=== PATIENT | female | born 1985 | race Caucasian/White ===

== ENCOUNTER 2017-03-14 21:37 | Emergency (ER) | payer OTHER ==
[~2017-03-14] VITALS: Ht 160 cm; Wt 59.9 kg
[~2017-03-14 21:37] MED LIST: AMOXIL500 MG PO; AURODEX 54 MG/M10 ML OT
--- NOTE | 2017-03-14 22:11 | ED INFLUENZA/URI COMPLAINT ---
History of Present Illness General Chief Complaint: Upper Respiratory Sx/Fever Stated Complaint: UPPER RES PROBLEMS Source: patient, old records Exam Limitations: no limitations Vital Signs & Intake/Output Vital Signs & Intake/Output Vital Signs Date Time Temp Pulse Resp B/P B/P Pulse O2 O2 Flow FiO2 Mean Ox Delivery Rate 03/140 98.0 87 18 124/74 100 Room Air 03/14 2227 99 Room Air 03/14 2143 99.7 118 20 126/89 98 Room Air ED Intake and Output 03/15 0000 03/14 1200 Intake Total 50 Output Total Balance 50 Intake, Oral 50 Patient 132 lb Weight Weight Reported by Patient Measurement Method Allergies Coded Allergies: NO KNOWN ALLERGIES (03/14/17) Reconcile Medications Amoxicillin (Amoxil) 500 MG CAP 1 TAB PO TID EAR INFECTION Amoxicillin/Potassium Clav (Augmentin 875-125 Tablet) 875 MG-125 MG TABLET 1 TAB PO BID uri Antipyrine/Benzocaine (Aurodex Otic Solution) 10 ML CHERRIE 4 GTT OT Q4 PRN PAIN Codeine Phosphate/Guaifenesi (Guaifen-Codeine 100-10 MG/5 Ml) 10 MG-100 MG/5 ML LIQUID 10 ML PO Q6HR PRN COUGH Triage Note: PT C/O URI SYMPTOMS WITH BAD COUGH, OVERALL ILL FEELING UNIMPROVED BY MOTRIN THIS AFTERNOON. STATES SHE WAS EXPOSED TO BREATHING SOME CLOROX YESTERDAY, UNSURE IF RELATED. COUGH IS NON-PRODUCTIVE. ALSO ENDORSES FEVER, 99.7 IN TRIAGE. PRESSURE TO HEAD WITH COUGHING. -N/V/D. +SORE THROAT, PAIN WITH SWALLOWING. THROAT SWABS OBTAINED AND SENT. MEDICATED WITH TYLENOL IN TRIAGE. Triage Nurses Notes Reviewed? yes Onset: Abrupt Duration: day(s): (2), constant Timing: recent history Severity: mild, moderate Severity Numbers: 5 : No Patient currently breastfeeds: No HPI: 31-year-old female presents to the ER for evaluation complaining of a 2 day history of a nonproductive cough generalized bodyaches and subjective fevers at home since yesterday. She reports a chills while outside. She denies any chest pain shortness of breath abdominal pain nausea vomiting diarrhea. No sick contacts. The patient states that she was using Clorox prophylaxis for a walk cleaning and is not sure if that caused her symptoms today. She is an active smoker. No modifying factors or associated symptoms. (MELANIE ZAIDI) Past History Travel History Traveled to [place] past 21 day No Medical History Any Pertinent Medical History? none Neurological: NONE EENT: NONE Cardiovascular: NONE Respiratory: NONE Gastrointestinal: NONE Hepatic: NONE Renal: NONE Musculoskeletal: NONE Psychiatric: ADHD Endocrine: NONE Blood Disorders: NONE Cancer(s): NONE Surgical History Surgical History: non-contributory Psychosocial History What is your primary language Russian Tobacco Use: Current Not Daily Daily Tobacco Use Amount/Type: =< 4 Cigarettes daily ETOH Use: occasional use Illicit Drug Use: denies illicit drug use Family History Hx Contributory? No (MELANIE ZAIDI) Review of Systems Review of Systems Constitutional: Reports: see HPI. All Other Systems: Reviewed and Negative Comments Review of systems: See HPI, All other systems negative. Constitutional, no chills no fever, no malaise HEENT: No visual changes sore throat no congestion, no ear pain Cardiovascular: No chest pain , no palpitation Skin: no rashes, no change in skin Respiratory: No dyspnea cough no sputum GI: No nausea no vomiting, no diarrhea, : No dysuria Muscle skeletal: No joint pain, no joint swelling, no back pain, no neck pain, Neurologic: No numbness no headache Psych: No stress Heme/endocrine: No bruising Immunology: No lymphadenopathy (MELANIE ZAIDI) Physical Exam Physical Exam General Appearance: well developed/nourished, no apparent distress, alert, awake Ears, Nose, Throat: normal ENT inspection Comments: Well-developed well-nourished patient in no apparent distress. Head/Face: Atraumatic, no maxillary/frontal sinus tenderness, no facial swelling Eyes: PERRL, EOMI, no conjunctival injection. No nystagmus Ear:External auditory canal and Tympanic membranes clear, no erythema, no FB. Nose: atraumatic.Normal inspection: No bleeding, no septal hematoma Throat: Moist mucous membranes.Pharynx normal. No pharyngeal erythema/exudate seen. No stridor/drooling or assymetry. No swelling or edema. Neck: Supple, no lymphadenopathy, FROM Back: FROM Cardiovascular: Regular rate and rhythms no murmurs rubs Respiratory: Chest nontender.There were no bony deformities, no asymmetry. No respiratory distress. Patient speaking in full complete sentences. Breath sounds clear to auscultation bilaterally: NO W/R/R Extremities: full range of motion Neuro: awake, alert, and oriented to person, place and time. There were no obvious focal neurologic abnormalities. Skin: Warm & dry;No appreciable rash on exposed skin Psych: Mood affect normal, normal memory normal judgment. Core Measures Severe Sepsis Present: No Septic Shock Present: No (MELANIE ZAIDI) Progress Differential Diagnosis: influenza, otitis, pneumonia, pharyngitis, sinusitis Plan of Care: Orders Procedure Date/time Status THROAT CULTURE W/QUICK STREP 03/14 2146 Active I discussed with the patient at length all of their results. smoking cessation d /w pt at length I had an extensive conversation regarding need for close follow up with their primary care physician this week as well as return precautions. I answered all of their questions, they feel comfortable with the plan and follow- up care. I discussed with the patient/family the medications that they will receive. I gave them signs and symptoms that could indicate an adverse reaction. I have advised them to limit their activities until they can see how they respond to the medication. (MELANIE ZAIDI) Initial ED EKG: none (MELANIE ZAIDI) Departure Departure Time of Disposition: 2216 Disposition: HOME OR SELF CARE Condition: Stable Clinical Impression Primary Impression: URI (upper respiratory infection) Referrals: JL BABIN APRN (PCP/Family) Additional Instructions: Tylenol Motrin for fevers bodyaches as needed every 4-6 hours. Augmentin as directed, follow up with her primary care physician. robitussin with codeine- this has a narcotic in it.no driving or drinking alcohol while taking. Return to ER with any concerns. Departure Forms: Customer Survey General Discharge Information Prescriptions: Current Visit Scripts Amoxicillin/Potassium Clav (Augmentin 875-125 Tablet) 1 TAB PO BID #14 TAB Codeine Phosphate/Guaifenesi (Guaifen-Codeine 100-10 MG/5 Ml) 10 ML PO Q6HR PRN COUGH #150 ML (MELANIE ZAIDI) PA/ORNAMENTAL MACHINE OPERATOR Co-Sign Statement Statement: ED Attending supervision documentation- [] I saw and evaluated the patient. I have also reviewed all the pertinent lab results and diagnostic results. I agree with the findings and the plan of care as documented in the PA's/ORNAMENTAL MACHINE OPERATOR's documentation. [X] I have reviewed the ED Record and agree with the PA's/ORNAMENTAL MACHINE OPERATOR's documentation. [] Additions or exceptions (if any) to the PAs/ORNAMENTAL MACHINE OPERATOR's note and plan are summarized below: [] (RANCHO HOLGUNI,ALEX)
[2017-03-14] MEDS ORDERED: GUAIFEN-CODEIN118 M1 PO (22:18)
[2017-03-14] MEDS ORDERED: AUGMENTIN 875-1 EACH PO (22:18)
[2017-03-14 22:30] VITALS: BP 124/74
== END 2017-03-14 22:31 ==
LOC: ERH 21:37
DX: N39.0 Urinary tract infection, site not specified (principal)

== ENCOUNTER 2018-04-23 22:36 | Emergency (ER) | payer SELFPAY ==
[~2018-04-23 22:36] MED LIST changes: +AUGMENTIN 875-1 EACH PO; +GUAIFEN-CODEIN118 M1 PO
--- NOTE | 2018-04-23 23:24 | ED PSYCHIATRIC COMPLAINT ---
History of Present Illness General Chief Complaint: Psychiatric Related Complaint Stated Complaint: DEPRESSED, -SI Source: patient Exam Limitations: no limitations Vital Signs & Intake/Output Vital Signs & Intake/Output Vital Signs Date Time Temp Pulse Resp B/P B/P Pulse O2 O2 Flow FiO2 Mean Ox Delivery Rate 04/24 0850 97.7 72 20 105/69 94 04/23 2241 98.7 82 22 151/105 98 Room Air ED Intake and Output 04/24 0000 04/23 1200 Intake Total Output Total Balance Patient 130 lb Weight Weight Reported by Patient Measurement Method Allergies Coded Allergies: NO KNOWN ALLERGIES (03/14/17) Reconcile Medications Amoxicillin (Amoxil) 500 MG CAP 1 TAB PO TID EAR INFECTION Amoxicillin/Potassium Clav (Augmentin 875-125 Tablet) 875 MG-125 MG TABLET 1 TAB PO BID uri Antipyrine/Benzocaine (Aurodex Otic Solution) 10 ML CHERRIE 4 GTT OT Q4 PRN PAIN Codeine Phosphate/Guaifenesi (Guaifen-Codeine 100-10 MG/5 Ml) 10 MG-100 MG/5 ML LIQUID 10 ML PO Q6HR PRN COUGH Triage Note: PT TO ED WITH C/O INCREASING DEPRESSION AND STRESS. HAS BEEN PRESCRIBED EFFEXOR IN THE PAST FOR DEPRESSION BUT HAS NOT TAKEN IN SEVERAL MONTHS. DENIES SI. TEARFUL IN TRIAGE. Triage Nurses Notes Reviewed? yes Onset: Gradual Duration: week(s):, waxing and waning Timing: recent history Severity: moderate Associated Symptoms: anxiety : No Patient currently breastfeeds: No HPI: 32 YO woman with severe depression x many months, was previously on effexor and vyvanse but stopped several months ago due to losing insurance. She shares that she is unable to go out of her house. "I break down crying all the time... My moods are up and down... it's so bad...." She denies etoh, drug use. She denies SI/HI. She is otherwise well. (Saskia HOLGUIN,Asa Cervantes) Past History Travel History Traveled to [place] past 21 day No Medical History Any Pertinent Medical History? see below for history Neurological: NONE EENT: NONE Cardiovascular: NONE Respiratory: NONE Gastrointestinal: NONE Hepatic: NONE Renal: NONE Musculoskeletal: NONE Psychiatric: ADHD Endocrine: NONE Blood Disorders: NONE Cancer(s): NONE Surgical History Surgical History: non-contributory Psychosocial History What is your primary language Turkmen Tobacco Use: Current Daily Use Daily Tobacco Use Amount/Type: => 5 Cigarettes daily ETOH Use: occasional use Illicit Drug Use: denies illicit drug use Family History Hx Contributory? No (Saskia HOLGUIN,Asa Cervantes) Review of Systems Review of Systems Constitutional: Reports: no symptoms. EENTM: Reports: no symptoms. Respiratory: Reports: no symptoms. Cardiovascular: Reports: no symptoms. GI: Reports: no symptoms. Genitourinary: Reports: no symptoms. Musculoskeletal: Reports: no symptoms. Skin: Reports: no symptoms. Neurological/Psychological: Reports: no symptoms. Hematologic/Endocrine: Reports: no symptoms. Immunologic/Allergic: Reports: no symptoms. All Other Systems: Reviewed and Negative (Saskia HOLGUIN,Asa Cervantes) Physical Exam Physical Exam General Appearance: well developed/nourished, mild distress Head: atraumatic Eyes: Bilateral: normal appearance. Ears, Nose, Throat: normal ENT inspection Neck: normal inspection, supple Respiratory: no respiratory distress Neurological/Psychiatric: awake, agitated, anxious, ample tearfulness, very distraught Appearance/Memory/Insight: appropriate appearance, appropriate insight Behavoir/Eye Contact/Speech: cooperative Thoughts/Hallucinations: no apparent hallucination Skin: intact, normal color, warm/dry SAD PERSONS Done? patient not suicidal (Saskia HOLGUIN,Asa Cervantes) Progress Differential Diagnosis: depression, bipolar, agoraphobia Plan of Care: Orders Procedure Date/time Status Regular Diet 04/24 B Active Add-on Test (ER Only) 04/24 402 Active HUMAN BETA HCG SCREEN 04/24 100 Complete URINE DRUG SCREEN FOR ER ONLY 04/23 2333 Complete ETHANOL 04/23 2333 Complete COMPREHENSIVE METABOLIC PANEL 04/23 2333 Complete CBC WITHOUT DIFFERENTIAL 04/23 2333 Complete ED CRISIS PSYCH CONSULT 04/23 2333 Active Current Medications Sig/Sobeida Start time Last Medication Dose Stop Time Status Admin Lorazepam 1 MG TIDPRN PRN 04/23 2345 AC (Ativan) Laboratory Tests : Serum Alcohol < 10.0 : Anion Gap 7, Estimated GFR > 60, BUN/Creatinine Ratio 22.9, Glucose 91, Calcium 9.5, Total Bilirubin 0.2, AST 20, ALT 18, Alkaline Phosphatase 58, Total Protein 6.5, Albumin 3.8, Globulin 2.7, Albumin/Globulin Ratio 1.4, Total Beta HCG NEGATIVE, CBC w Diff NO MAN DIFF REQ, RBC 3.86 L, MCV 90.8, MCH 31.7 H, MCHC 35.0, RDW 12.4, MPV 8.2, Gran % 57.3, Lymphocytes % 33.5, Monocytes % 6.8, Eosinophils % 2.0, Basophils % 0.4, Absolute Granulocytes 5.7, Absolute Lymphocytes 3.3, Absolute Monocytes 0.7 H, Absolute Eosinophils 0.2, Absolute Basophils 0, Urine Opiates Screen < 100, Methadone Screen < 40, Barbiturate Screen < 60, Ur Phencyclidine Scrn < 6.00, Amphetamines Screen 950, U Benzodiazepines Scrn < 85, Urine Cocaine Screen < 50, Urine Cannabis Screen < 5.00 (Saskia HOLGUIN,Asa Cervantes) Departure Departure Condition: Stable Clinical Impression Primary Impression: Depression Referrals: Lisandro Murrell APRN (PCP/Family) Departure Forms: Customer Survey General Discharge Information Comments pt to be signed out to dr. mesa 04/24/18, 7am. (Saskia HOLGUIN,Asa Cervantes) Departure Disposition: HOME OR SELF CARE Comments Seen by Crisis with appropriate outpatient follow-up. (Wilian HOLGUIN,Christiano)
[2018-04-24 01:28] LABS: ABSOLUTE BASOPHIL COUNT 0 /CUMM (0.0-0.2); ABSOLUTE EOSINOPHIL COUNT 0.2 /CUMM (0.0-0.7); ABSOLUTE GRANULOCYTE CT 5.7 /CUMM (1.4-6.5); ABSOLUTE LYMPH COUNT 3.3 /CUMM (1.2-3.4); ABSOLUTE MONOCYTE COUNT 0.7 /CUMM (0.10-0.60); BASOPHIL % 0.4 % (0.0-2.0); GRANULOCYTE % 57.3 % (42.2-75.2); MEAN CORPUSCULAR HGB 31.7 PG (27.0-31.0); MEAN CORPUSCULAR VOLUME 90.8 FL (81.0-99.0); MEAN PLATELET VOLUME 8.2 FL (7.4-10.4); PLATELET COUNT 270 /CUMM (130-400); RBC DISTRIBUTION WIDTH 12.4 % (11.5-14.5); RED BLOOD CELL CT 3.86 /CUMM (4.20-5.40); WHITE BLOOD CELL COUNT 9.9 /CUMM (4.8-10.8)
[2018-04-24] MEDS ORDERED: EFFEXOR XR37.5 M1 PO (11:24)
[2018-04-24 12:05] VITALS: BP 108/63
--- NOTE | 2018-04-24 12:11 | ED PSYCH CRISIS CONSULTATION ---
Crisis Consult Basic Assessment Date of Consult: 04/24/18 Responsible Person/Accompanied By: self Insurance Authorization: Insurance #1: Insurance name: SELF-PAY Phone number: Policy number: Group number: Authorization number: ED Provider: Patient's ED Provider: Saskia HOLGUIN,Asa Cervantes Primary Care Physician: Patient's PCP: Lisandro Murrell APRN PCP's Current Psychiatrist: none Chief Complaint: Psychiatric Related Complaint Patient's Quote: The last 2 days I don't want to leave my house Present Illness: Pt is a 32yo female presenting to [place] ED last evening reporting depression. Pt reports on and off depression past 10 yrs but experiencing severe episode past 2 days. Pt reports starting Sunday morning to having energy or motivation to get out of bed. Pt reports typically working many hrs a day at multiple part- time jobs to support herself and 7 yo son. 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 She denies SI/HI. No hx of attempts. No prior inpatient treatment. Denies gun access. Denies AH/VH. Pt reports "I love life and I love being a mom". Pt questions if she is bipolar as dawson swings and extended periods of being awake are followed by long periods of sleep. Pt reports great fluctuation with appetite but primarily has to force herself to eat. Pt reports occasional social etoh and denies substance use. Pt reports feeling she was more stable when engaged in outpatient tx at [facility] and taking Effexor and Vyvanse. She reports stopping treatment and medications a few months ago when she let her insurance lapse. Pt presents as tired, calm , cooperative and OX3. Case reviewed with Dr Berg. Recommendation for pt to re- engage in outpatient tx. Pt in agreement with plan. Pt able to complete phone referral with Mario at [facility] [phone] and scheduled for an appointment on May 02 at 11:30am. Patient's Address: [address] [place] [address] Other Phone Number: Who Do You Live With? Son (age 7) Family/Informants Interviewed: collateral provided by sister Karolyn [phone]. Reports pt has been more secluded recently; depreesed. Denies concern that pt would harm self. Supports plan for pt to resume outpatient services at [facility]. Allergies - Coded Allergies: NO KNOWN ALLERGIES (03/14/17) Current Medications - Scheduled Medications Amoxicillin (Amoxil) 500 MG CAP 1 TAB PO TID EAR INFECTION 7 Days Prescribed by Jude Chavira MD on 07/20/15 Amoxicillin/Potassium Clav (Augmentin 875-125 Tablet) 875 MG-125 MG TABLET 1 TAB PO BID uri #14 TAB Prescribed by David Lambert on 03/14/17 Venlafaxine HCl (Effexor XR) 37.5 MG CAP.ER.24H 1 CAP PO DAILY Depression #15 CAP Prescribed by Christiano Cedeno MD on 04/24/18 Scheduled PRN Medications Antipyrine/Benzocaine (Aurodex Otic Solution) 10 ML CHERRIE 4 GTT OT Q4 PRN PAIN # 10 ML Prescribed by Jude Chavira MD on 07/20/15 Codeine Phosphate/Guaifenesi (Guaifen-Codeine 100-10 MG/5 Ml) 10 MG-100 MG/5 ML LIQUID 10 ML PO Q6HR PRN COUGH #150 ML Prescribed by David Lambert on 03/14/17 Past History Past Medical History Neurological: NONE EENT: NONE Cardiovascular: NONE Respiratory: NONE Gastrointestinal: NONE Hepatic: NONE Renal: NONE Musculoskeletal: NONE Psychiatric: ADHD Endocrine: NONE Blood Disorders: NONE Cancer(s): NONE Past Surgical History Surgical History: non-contributory Psychosocial History Strengths/Capabilities: single parent; works multiple part-time jobs Psychiatric Treatment History Psych Treatment Psychiatric Treatment Yes Inpatient Treatment No Outpatient Treatment Yes Location of Treatment [facility] Reason for Treatment depression/mood d/o Dates of Treatment 2016 - Aug 2017 Response to Treatment pt reports feeling better when she was in therapy and taking medications Diagnosis by History: depression Substance Use/Abuse History Drug Use/Abuse Substances Used/Abused Yes Substance Used/Abused Alcohol How often social/no issues Substance Abuse Treatment Substance Abuse Treatment Past Substance Abuse [place] No Inpatient Treatment No Outpatient Treatment No Current Mental Status Mental Status Orientation: Person, Place, Situation Affect: Depressed Speech: WNL Neuro-vegetative: Appetite Decreased, Appetite Increased, Energy Decreased, Sleep Disturbance Appearance Appearance- Dress/Hygiene: hospital scrubs; disheveled; tired appearence; good eye contact Behaviors Thought Process: WNL Thought Content: WNL Memory: WNL Insight: Fair SI/HI Risk Assessment Past Suicidal Ideation/Attempts No Current Suicidal Ideation/Att No Past Homicidal Ideation/Att: No Current Homicidal Ideation/Attempts No Degree of Intent: None Lethality Ratin (mild) PTSD Checklist PTSD Done? patient declined ED Management Sitter: Yes Restraints: No DSM5/PS Stressors/Medical Prob Diagnosis' (DSM 5, Stressors, Medical): Unspecified Bipolar D/o F31.9 off medication inactive insurance Current GAF: 40 Comments: pt reports increased depression; irritability and mood swings since stopping treatment at [facility] Departure Disposition Psych Medical Clearance Date: 04/24/18 Medically Cleared at: 0815 Time Started: 0815 Time Ended: 899 Psychiatrist Consulted: Asa Berg MD Date Disposition Established: 04/24/18 Time Disposition Established: 1015 Plan for Disposition - Modality: Outpatient Facility: [facility] Follow-up Appt Date: 05/02/18 Follow-Up Appt Time: 1130 Contact: Mario Rationale for Disposition: pt reported increased labile mood since stopping medications/therapy several months ago. Pt denies/SI/HI. Plan to re-engage at [facility]. Pt discharges with 15 day script of Effexor 37.5 mg. Referrals Lisandro Murrell APRN (PCP/Family)
== END 2018-04-24 12:15 ==
LOC: ERH 22:36
PROVIDERS: Pediatrics
DX: F32.9 Major depressive disorder, single episode, unspecified (principal); F17.210 Nicotine dependence, cigarettes, uncomplicated; F10.10 Alcohol abuse, uncomplicated
CPT/HCPCS: 80307; G0463; G0480